=== PATIENT | female | born 1980 | race Two or more races ===

== ENCOUNTER 2016-12-06 23:25 | Day surgery (SDC) | payer MEDICAID ==
[2016-12-07] MEDS ORDERED: ONDANSETRON 4 MG/2ML 2 ML VIAL ONE ×2 (00:29→12:06)
[2016-12-07] MEDS ORDERED: MAALOX/LIDO2%VISC/SIMETHICONE 40 ML BOT ONE (00:29)
[2016-12-07] MEDS ORDERED: HYDROMORPHONE HCL 0.5 MG/0.5 ML SYRINGE ONE (00:30)
[2016-12-07 01:20] LABS: ABSOLUTE NEUTROPHIL COUNT 6.9 K/mm3 (1.8-7.7); ALB/GLOB RATIO 1.4 (>1.0); ALBUMIN 4.1 gm/dL (3.5-5.7); BASO % 0.4 % (0.2-1.0); CALCIUM 9.3 mg/dL (8.6-10.3); EOS # 0.1 (0.0-0.5); EOS % 1.4 % (0.9-2.9); HEMATOCRIT 37.5 % (37.0-47.0); HEMOGLOBIN 12.9 gm/l (12.0-16.0); IMM NEUT # 0.1 K/mm3 (0-0.2); IMM NEUT% 0.5 % (0-1); LYMPH # 2.5 (1.0-4.8); LYMPH % 24.7 % (15-45); MEAN CELL VOLUME 88.2 fl (81.0-99.0); MEAN CORPUSCULAR HEMOGLOBIN 30.4 pg (27.0-31.0); MEAN CORPUSCULAR HGB CONC 34.4 g/dl (33.0-37.0); MEAN PLATELET VOLUME 9.9 fl (7.4-10.4); MONO # 0.6 (0.0-0.8); MONO % 5.6 % (4-12); NEUT % 67.4 % (43-75); PLATELET COUNT 230 K/mm3 (130-400); RED CELL DISTRIBUTION WIDTH 12.6 % (11.5-14.5)
[2016-12-07] MEDS ORDERED: SODIUM CHLORIDE 0.9% 2,000 ML ONE (01:48)
[2016-12-07] MEDS ORDERED: HYDROMORPHONE HCL 2 MG/ML SYRINGE IV PRN (02:11)
[2016-12-07] MEDS ORDERED: SODIUM CHLORIDE 0.9% 100 ML IV PRN (02:11)
[2016-12-07] MEDS ORDERED: MENTHOL/CETYLPYRD 1 EACH LOZENGE PO PRN (02:11)
[2016-12-07] MEDS ORDERED: ONDANSETRON 4 MG/2ML 2 ML VIAL IV PRN ×3 (02:11→13:25)
[2016-12-07] MEDS ORDERED: BISACODYL 10 MG SUP PR PRN (02:11)
[2016-12-07] MEDS ORDERED: BISACODYL 5 MG TABLET.EC PO PRN (02:11)
[2016-12-07] MEDS ORDERED: ACETAMINOPHEN 325 MG TABLET PO PRN (02:11)
[2016-12-07] MEDS ORDERED: MAGNESIUM HYDROXIDE 30 ML UDCUP PO PRN (02:11)
[2016-12-07] MEDS ORDERED: BLISTEX LIPSTICK 1 EACH TP PRN (02:11)
[2016-12-07] MEDS ORDERED: HYDROMORPHONE HCL 1 MG/ML SYRINGE IV PRN ×2 (02:22→12:53)
[2016-12-07] MEDS ORDERED: PUMP TUBING ONE (04:09)
[2016-12-07] MEDS: SODIUM CHLORIDE 0.9% 1,000 ML IV SCH ×2 (04:10→10:56)
[2016-12-07] MEDS: HYDROMORPHONE HCL 0.5 MG/0.5 ML SYRINGE IV PRN ×2 (05:30→07:39)
--- NOTE | 2016-12-07 08:13 | US ---
ABDOMINAL-LIMITED COMPARISON: CT abdomen and pelvis without contrast 01/06/2015 HISTORY: Abdominal pain for 3 hours. Known gallstones. FINDINGS: Gall bladder: 2.9 cm mobile gallstone. Upper limit normal wall thickness of 3 mm. Normal gallbladder size, 10.7 x 3.5 cm. Negative Shay sign. Common hepatic duct: 4.5 mm. Common bile duct: 4.0 mm. IMPRESSION: 1. 2.9 cm mobile gallstone. No evidence of acute cholecystitis. Preliminary report by statrad radiologist Betzaida Marx MD 12/07/2016 at 00:58
[2016-12-07] MEDS ORDERED: DOCUSATE SODIUM 100 MG CAPSULE PO SCH (09:00)
--- NOTE | 2016-12-07 09:01 | HP ---
Maegan Lyons [id number] DATE OF ADMISSION: December 07, 2016 CHIEF COMPLAINT: Right upper quadrant pain. HISTORY OF PRESENT ILLNESS: The patient is a 36-year-old female with a past medical history significant for gallstones and biliary colic who presented to the [facility] with history of right upper quadrant pain beginning on the evening of December 06 occurring about 2 hours after eating associated with nausea and vomiting and persistent pain symptoms. Evaluation in the emergency department showed evidence of a 2.9 cm mobile gallstone, normal hepatic duct, no gallbladder wall thickening, or biliary dilatation, but she did have an elevated lipase level up to 2534 and mildly elevated transaminase levels. She was referred to the hospitalist service for gallstone pancreatitis and bowel rest. REVIEW OF SYSTEMS: Negative for any fever. She reports some subjective chills. She denies any recent upper respiratory symptoms, cough, dyspnea, chest pain, shortness or palpitations. She has had some nausea with about 2 or 3 episodes of emesis last night in the emergency department. She has the right upper quadrant abdominal pain as mentioned, but denies any diarrhea or constipation. She denies any arthralgias, headaches, fainting, blackouts, or seizures. She has had no urinary complaints. Review of systems is otherwise negative. PAST MEDICAL HISTORY: Significant for obesity and gestational diabetes. She is still following a low sugar diet, but so far her diabetes is considered gestational only. She had an uncomplicated spontaneous vaginal delivery on September 12, 2016. She has had no other chronic medical problems except for the known gallstones with biliary colic off and on over the last year. PAST SURGICAL HISTORY: Significant for a prior section and a prior dilation and curettage. ALLERGIES: She has no known drug allergies. MEDICATIONS: None. FAMILY HISTOR: Significant for a mother with diabetes. SOCIAL HISTORY: She has 5 children. She is . Nonsmoker. Lives at home with her . Denies alcohol or illicit drug use. Her primary care provider is Dr. Kajal Ortega at [facility]. PHYSICAL EXAMINATION: VITALS: Show a temperature of 98.2, pulse 78, blood pressure 118/73, respirations 16, oxygen saturations are 96% on room air. Body mass index 36.2, weight is 84 kg. GENERAL: This is a obese female in mild distress. HEENT: Shows moist pink oral mucosa. LUNGS: Clear to auscultation bilaterally. CARDIOVASCULAR: Reveals a regular rate and rhythm without a murmur. ABDOMEN: Obese, soft, nontender, nondistended with positive bowel sounds except she does have some tenderness or discomfort in the right upper quadrant. No rebound or guarding. No masses. PELVIC: Deferred. RECTAL: Deferred. EXTREMITIES: Show no peripheral edema. SKIN: Warm, dry, and intact. LABORATORY STUDIES: Show a white blood cell count of 10.3, hemoglobin 12.9, platelet count 230,000. Chemistry profile shows sodium 137, potassium 3.6, BUN 13, creatinine 0.5, glucose 190, total bilirubin 0.4, AST 92, ALT 59, alkaline phosphatase 85, albumin is 4.1, globulin 2.9, lipase is elevated at 2534. ASSESSMENT AND PLAN: The patient has right upper quadrant pain associated with gallstones and evidence of acute pancreatitis with likely gallstone pancreatitis. She also has some nausea and vomiting and obesity. She is admitted to med/surg unit. I went ahead and consulted with surgeon, Dr. Goode who plans to take the patient to the operating room later today. She is made nothing by mouth and she has been hydrated overnight. Further treatment and recommendations will depend on her hospital course. Venous thromboembolism is moderate. Prophylaxis has been prescribed in the form of mechanical measures due to the need for anticipated surgery. JOB: [id number]
[2016-12-07] MEDS ORDERED: FENTANYL 5 ML ONE (10:25)
[2016-12-07] MEDS ORDERED: MIDAZOLAM HCL 1 MG/ML 2ML VIAL ONE (10:25)
[2016-12-07] MEDS ORDERED: LACTATED RINGERS 1,000 ML ONE (10:26)
[2016-12-07] MEDS ORDERED: LIDOCAINE 2% (MULTI DOSE) 10 ML VIAL ONE (10:30)
[2016-12-07] MEDS ORDERED: PROPOFOL 20 ML IV ONE (10:30)
[2016-12-07] MEDS ORDERED: ROCURONIUM BROMIDE 10 MG/ML DOSE IV ONE (10:32)
[2016-12-07] MEDS ORDERED: LIDOCAINE 1%/EPI (MULTI DOSE) 20 ML VIAL ONE ×2 (10:37→10:51)
[2016-12-07] MEDS ORDERED: BUPIVACAINE 0.5% (PRES FREE) 30 ML VIAL ONE ×2 (10:37→10:52)
--- NOTE | 2016-12-07 10:38 | PCMCONS ---
General Surgery Consult: CC: Abdominal Pain HPI: 36yo F with one day of abdominal pain. It is located in her epigastrium and refers to her back. She saw her PCP who prescribed her with oxycodone which minimally helped the pain. She has some nausea, but denies any F/C/V/CP/SOB, change in bladder fx, constipation, diarrhea, unintentional weight loss, easy bleeding/bruising, or other associated symptoms. She was admitted last night by the hospitalist service and made NPO and started on IVF. Her pain is improved from admission and she has made 1400mL of UOP since admission. REVIEW OF SYSTEMS CONSTITUTIONAL: As per HPI. EARS, NOSE, MOUTH, THROAT: No sneezing or runny nose CARDIOVASCULAR: As per HPI. RESPIRATORY: As per HPI. GASTROINTESTINAL: As per HPI. GENITOURINARY: As per HPI. NEUROLOGICAL: No history of seizures HEMATOLOGIC: As per HPI. MUSCULOSKELETAL: No change in strength. LYMPHATICS: No history of splenectomy. PSYCHIATRIC: No change in personality or affect PMH: None PSH: Meds: Oxycodone, Pre-misti vitamins All: NKDA SH: Denies tobacco FH: No FH of cancers. Vitals (last 24 hours): Vital Signs - 24 hr 12/07/16 12/07/16 12/07/16 02:11 02:54 07:30 Temperature 98.2 F Pulse Rate 78 Respiratory 16 16 14 Rate Blood Pressure 118/73 O2 Saturation 96 by Pulse Oximetry 12/07/16 08:00 Temperature 97.5 F Pulse Rate 78 Respiratory 14 Rate Blood Pressure 118/73 O2 Saturation 96 by Pulse Oximetry Physical Exam: General/Constitutional: Vitals documented above, comfortable in NAD Psych: A&O x 3, normal judgment and insight. Recent and remote memory intact. Mood and affect normal. Eyes: Pupils equal, no scleral icterus Ears, Nose, Mouth, Throat: gross hearing intact Neck: Supple Heart: RRR, no LE edema Lungs: Equal rise and fall of chest wall, non-labored breathing, no audible wheezes Neuro: Gross sensation intact Abdomen: Soft, ND, mild epigastric and RUQ TTP, no guarding, negative Shay's sign. Labs (Last 24 hours): Laboratory Results - last 24 hr 12/07/16 00:50 WBC 10.3 RBC 4.25 Hgb 12.9 Hct 37.5 MCV 88.2 MCH 30.4 MCHC 34.4 RDW 12.6 Plt Count 230 Neut % (Auto) 67.4 Lymph % (Auto) 24.7 Toole % (Auto) 5.6 Baso % (Auto) 0.4 Absolute Neuts (auto) 6.9 Eosinophils % 1.4 Sodium 137 Potassium 3.6 Chloride 103 Carbon Dioxide 25 Anion Gap 13 BUN 13 Creatinine 0.5 L Estimated GFR 140 H BUN/Creatinine Ratio 26 H Glucose 190 H Calcium 9.3 Total Bilirubin 0.4 AST 92 H ALT 59 H Alkaline Phosphatase 85 Total Protein 7.0 Albumin 4.1 Globulin 2.9 Albumin/Globulin Ratio 1.4 Lipase 2534 H % Immature Granulocyt 0.5 Radiology: RU US (12/07/16) ABDOMINAL-LIMITED COMPARISON: CT abdomen and pelvis without contrast 01/06/2015 HISTORY: Abdominal pain for 3 hours. Known gallstones. FINDINGS: Gall bladder: 2.9 cm mobile gallstone. Upper limit normal wall thickness of 3 mm. Normal gallbladder size, 10.7 x 3.5 cm. Negative Shay sign. Common hepatic duct: 4.5 mm. Common bile duct: 4.0 mm. IMPRESSION: 1. 2.9 cm mobile gallstone. No evidence of acute cholecystitis. A/P: 36yo F with mild gallstone pancreatitis ([place] 0, no systemic abnormalities). I recommend cholecystectomy. The operation and expected post-operative course were discussed at length. We discussed the risks of the operation to include, but not limited to: bleeding, pain, infection, scar, damage to surrounding structures (liver, small intestine , stomach, colon), damage to bile ducts (CBD injury risk 1/300), retained stone , bile leak, need for conversion to an open procedure, need for cholangiogram, need for additional procedures, failure to improve symptoms, and the risks of anesthesia (heart attack, arrhythmia, stroke, blood clot, and ). The patient understands these risks and agrees to proceed with surgery. Will plan for laparoscopic cholecystectomy today. Gene Goode MD General Surgeon
[2016-12-07] MEDS ORDERED: CEFAZOLIN SODIUM 2 GRAM PREMIX 100 ML IV ONE (11:07)
[2016-12-07] MEDS ORDERED: DEXAMETHASONE SOD PHOS 4 MG/1 ML VIAL ONE (12:06)
[2016-12-07] MEDS ORDERED: EPHEDRINE SULFATE UD SYR 25 MG 25 MG/5 ML SYRINGE IV ONE (12:07)
--- NOTE | 2016-12-07 12:51 | PCMON ---
OPERATIVE REPORT Date of Operation: 12/07/2016 Pre-Op Diagnosis: Gallstone Pancreatitis Post-Op Diagnosis: BAY Operation: Laparoscopic Cholecystectomy Surgeon: Ileana Goode MD Customer Supply Chain Analyst: Codie Hyatt Anesthesia: GETA Pre-Operative Antibiotics: Ancef, 2g Specimen Sent to Lab: Gallbladder Infection Classification: 2 Estimated Blood Loss: 10mL Indication for Procedure: The patient is a 36 year fold female with one day of epigastric pain radiating to her back. Her lipase is elevated and a right upper quadrant ultrasound demonstrates cholelithiasis without cholecystitis. These findings are consistent with gallstone pancreatitis. The plan for today is a laparoscopic cholecystectomy. Description of Findings. The gallbladder was edematous and chronically scarred consistent with chronic cholecystitis. Detailed Operative Report: The patient was met in the preoperative holding area by the operating team. All questions and concerns were addressed appropriately. She was then taken to the operating room where general anesthesia was induced. A Renner catheter was placed. The abdomen was prepped and draped in the normal, sterile fashion. Local anesthetic was injected into the proposed infra-umbilical incision site. The skin was incised. The fascia was elevated and incised. Direct entry into the peritoneum was confirmed and a 12-mm balloon trocar was inserted. The abdomen was insufflated to a pressure of 15 mmHg, which the patient tolerated well. The laparoscope was inserted and the abdomen was inspected. There were no injuries noted from initial trocar placement. A 5 mm trocar was placed in the epigastric position. Two additional 5 mm trocars were placed along the right costal margin. The table was placed in the reverse Trendelenburg position with the right side elevated. The fundus of the gallbladder was grasped and retracted over the edge of the liver. The infundibulum was grasped and retracted towards the right lower quadrant. This maneuver exposed Calot's triangle. There were two tubular structures directly entering the gallbladder consistent with the cystic duct laterally and the cystic artery medially. These structures were circumferentially dissected. A critical view of safety was obtained. The cystic duct was triply clipped and divided. The cystic artery was similarly clipped and divided. The gallbladder was then dissected from its peritoneal attachments to the liver with electrocautery. The gallbladder was placed into an endoscopic retrieval bag. The gallbladder fossa was thoroughly irrigated and hemostasis was ensured. Secondary trocars were removed under direct vision. The infraumbilical trocar was removed, along with the specimen, and the abdomen was allowed to collapse. The fascia of the infra-umbilical site was closed with a 0 Vicryl suture in a [id number] fashion. All skin was closed with 4-0 Monocryl. The wounds were dressed with mastisol, steri strips, and band-aids. The Renner catheter was removed. The patient was then awakened from anesthesia, extubated, and transported to the PACU without complication. Prior to closing, all sponge and instrument counts were correct. ILEANA GOODE MD
[2016-12-07] MEDS ORDERED: FENTANYL 100 MCG/2 ML VIAL IV PRN (12:53)
[2016-12-07] MEDS ORDERED: NALOXONE HCL 0.4 MG/ML VIAL IV PRN (12:53)
[2016-12-07] MEDS ORDERED: MEPERIDINE 25 MG/ML SYRINGE IV PRN (12:53)
[2016-12-07] MEDS ORDERED: ATROPINE SULFATE 0.4 MG/1 ML VIAL IV PRN (12:53)
[2016-12-07] MEDS ORDERED: PROMETHAZINE HCL 25 MG/ML VIAL IM PRN (12:53)
[2016-12-07] MEDS ORDERED: CEFAZOLIN SODIUM 2 GRAM PREMIX 2 G in Premix (D5W) 100 ml 1 EACH IV ONE (12:58)
[2016-12-07] MEDS ORDERED: LACTATED RINGERS 1,000 ML IV SCH (13:00)
[2016-12-07] MEDS ORDERED: OXYCODONE/ACETAMINOPHEN 5/325 MG TABLET PO PRN (13:25)
[2016-12-07] MEDS: LACTATED RINGERS 1,000 ML IV SCH (14:26)
[2016-12-07] MEDS: KETOROLAC TROMETHAMINE 30 MG/ML 1 ML VIAL IV SCH ×2 (14:27→19:26)
[2016-12-07] MEDS: MORPHINE SULFATE 2 MG/ML SYRINGE IV PRN (16:46)
[2016-12-08] MEDS: KETOROLAC TROMETHAMINE 30 MG/ML 1 ML VIAL IV SCH (01:39)
[2016-12-08] MEDS: LACTATED RINGERS 1,000 ML IV SCH (04:34)
[2016-12-08] MEDS: MORPHINE SULFATE 2 MG/ML SYRINGE IV PRN (04:41)
[2016-12-08 07:44] VITALS: BP 122/69
--- NOTE | 2016-12-08 09:28 | PDOC43 ---
- Subjective S: Pain improved, tolerated clear liquids. No other complaints. O: VSS, robust UOP Physical Exam: General/Constitutional: Vitals documented above, comfortable in NAD Psych: A&O x 3, normal judgment and insight. Recent and remote memory intact. Mood and affect normal. Eyes: Pupils equal, no scleral icterus Ears, Nose, Mouth, Throat: gross hearing intact Neck: Supple Heart: RRR, no LE edema Lungs: Equal rise and fall of chest wall, non-labored breathing, no audible wheezes Neuro: Gross sensation intact Abdomen: Soft, ND, appropriate incisional TTP, no guarding. Epigastric incision covered with dressing with moderate strikethrough. Remaining incisions covered with dressings that are c/d/i. A/P: 36yo F doing well POD#1 s/p laparoscopic cholecystectomy for gallstone pancreatitis. Will advance diet to regular and HLIV. Anticipate discharge later today. Gene Goode MD General Surgeon - Objective Vital Signs Temperature 98.7 F 12/08/16 07:43 Pulse Rate 87 12/08/16 07:43 Respiratory Rate 14 12/08/16 07:43 Blood Pressure 122/69 12/08/16 07:43 O2 Saturation by Pulse Oximetry 98 12/08/16 07:43 Oxygen Delivery Method Room Air Oxygen Flow Rate 0 Laboratory 12/07/16 00:50 12/07/16 00:50 Active Medication Orders Category Date Time Status Ketorolac Tromethamine [Toradol] Med 12/07/16 13:25 Active 30 mg IV Q6H Lactated Ringers 1,000 ml Med 12/07/16 13:25 Active IV 75 mls/hr Morphine Sulfate Med 12/07/16 13:25 Active 1 - 2 mg IV Q1H PRN Ondansetron 4 mg/2ml Vial [Zofran] Med 12/07/16 13:25 Active 4 mg IV Q6H PRN Oxycodone HCl/Acetaminophen [Percocet 5/325] Med 12/07/16 13:25 Active 1 - 2 tab PO Q4H PRN Sodium Chloride 0.9% Flush [Normal Saline 10ml Flush] Med 12/07/16 13:06 Active 10 ml IV PRN PRN Sodium Chloride 0.9% Flush [Normal Saline 10ml Flush] Med 12/07/16 17:00 Active 10 ml IV Q8HR Intake and Output 12/06/16 12/07/16 12/08/16 23:59 23:59 23:59 Intake Total 5271 1454 Output Total 2600 6727 Balance 2191 -854
--- NOTE | 2016-12-08 09:33 | PDOC5 ---
ADMIT DATE: DISCHARGE DATE: 12/08/2016 ADMISSION DIAGNOSES: gallstone pancreatitis PROCEDURES PERFORMED THIS HOSPITALIZATION: laparoscopic cholecystectomy CONSULTATIONS: general surgery, hospitalist HOSPITAL COURSE: This is a 36 year old who presented with gallstone pancreatitis. She was taken to the operating room for a laparoscopic cholecystectomy, which she tolerated well. At the time of discharge, her pain was well controlled with oral pain medication, she was tolerating a regular diet , and ambulating without difficulty. She was discharged home on POD#1 in good condition. - Objective Vital Signs Temperature 98.7 F 12/08/16 07:43 Pulse Rate 87 12/08/16 07:43 Respiratory Rate 14 12/08/16 07:43 Blood Pressure 122/69 12/08/16 07:43 O2 Saturation by Pulse Oximetry 98 12/08/16 07:43 Oxygen Delivery Method Room Air Oxygen Flow Rate 0 - Discharge Plan Instruction Forms: Laparoscopic Cholecystectomy Forms: Work Release Form Prescriptions: Oxycodone HCl/Acetaminophen [PERCOCET 5/325 MG TABLET (SHF)] 1 - 2 tab PO Q4H PRN #20 tab PRN Reason: Pain Polyethylene Glycol 3350 [MIRALAX 17 G PACKET (SHF)] 17 g PO X1 #1 bot Follow-Up: Mani Goode MD [Staff Physician] -
--- NOTE | 2016-12-09 12:59 | SURGPATH ---
[facility] [address] [place] [id number] Patient Name: MANUEL BLEVINS MR#: [id number] : 1980 Gender: F Specimen #: [id number] Collected: 12/07/2016 Received: 12/08/2016 Reported: 12/09/2016 Submitting Phys: ILEANA CARLOS Copy To Phys: SOLO MENDES , ESTELLA ARAYA [facility] Clinical History / Pre-Operative Diagnosis: ACUTE CHOLECYSTITIS Specimen Source / Surgical Procedure Performed: GALLBLADDER Interpretation: GALLBLADDER: - MILD CHRONIC CHOLECYSTITIS WITH CHOLELITHIASIS. - CHOLESTEROLOSIS. Electronically Signed Out Josie Mauro M.D. Gross Description: The specimen is received in a formalin filled container labeled with the patient's name and "gallbladder". An intact engorged gallbladder is 10.7 x 5 cm. The serosa is smooth and dark andrew. The wall averages 0.2 cm. The mucosa is green andrew and velvety with scattered slightly raised yellow flecks. There is no nodule or induration. The lumen contains a copious amount of watery dark green bile and a single 1.5 cm nodular, crystalline, yellow-andrew calculus. Three advertising sales representative sections are submitted in one cassette including a cross section through the cystic duct surgical margin, a central cross section and a longitudinal section through the fundus. Andrea Thomason Microscopic Description: Sections of the gallbladder show mild chronic inflammation of the gallbladder mucosa and wall. In addition, some of the mucosal papillae contain collections of foamy macrophages. There is no evidence of neoplasm. 1: 09130 K81.1
== END 2016-12-08 10:00 | disposition home or self-care (01) ==
LOC: ED 23:25 → UNDOADMIN 12-07 01:37 → MS 12-07 01:37 → SDC 12-07 01:38 → MS 12-07 01:38 → SDC 12-08 10:00
PROVIDERS: ATTEND Surgery
PROC: 0FT44ZZ Resection of Gallbladder, Percutaneous Endoscopic Approach (ICD-10-PCS; principal; 2016-12-06)
DX: K85.10 Biliary acute pancreatitis without necrosis or infection (principal)
CPT/HCPCS: 83690; 85025; 80053; 76705; 96375; 99284; 96374; 99285; 47562; J3010; A9270 ×2; J1100; J2270 ×2; J1885 ×3; J2250; J2405 ×2; J7120 ×3; J7030 ×3; J1170 ×3; J2001; J0690